=== PATIENT | female | born 1965 | race Hispanic/Latino ===

== ENCOUNTER 2017-11-19 12:48 | Day surgery (SDC) | payer OTHER ==
[~2017-11-19] VITALS: Ht 165.1 cm; Wt 95.3 kg
[~2017-11-19 12:48] MED LIST: CYANOCOBAL1000 MCG/M IM; LORATADINE10 M3 PO; VITAMI IM
[2017-11-19 17:44] VITALS: BP 129/79
== END 2017-11-19 17:45 | disposition home or self-care (01) | DRG 392 ==
LOC: ENDO 12:48
PROVIDERS: ATTEND Internal Medicine Gastroenterology
PROC: 0DBN8ZX Excision of Sigmoid Colon, Via Natural or Artificial Opening Endoscopic, Diagnostic (ICD-10-PCS; principal; 2017-11-19)
PROC: 0DBP8ZX Excision of Rectum, Via Natural or Artificial Opening Endoscopic, Diagnostic (ICD-10-PCS; 2017-11-19)
DX: R14.0 Abdominal distension (gaseous) (principal); K59.00 Constipation, unspecified; D12.6 Benign neoplasm of colon, unspecified; K62.1 Rectal polyp; K64.4 Residual hemorrhoidal skin tags; K64.8 Other hemorrhoids; R11.2 Nausea with vomiting, unspecified; K21.9 Gastro-esophageal reflux disease without esophagitis; R10.13 Epigastric pain; Z79.899 Other long term (current) drug therapy

== ENCOUNTER → 2017-12-16 | Outpatient (REF) | payer OTHER ==
[2017-12-16 10:18] VITALS: BP 126/81
== END | disposition home or self-care (01) | DRG 951 ==
LOC: PO 09:40 → ORM 09:45
PROVIDERS: ATTEND Internal Medicine Gastroenterology
DX: Z01.818 Encounter for other preprocedural examination (principal); R10.13 Epigastric pain; R11.2 Nausea with vomiting, unspecified; K21.9 Gastro-esophageal reflux disease without esophagitis; Z98.890 Other specified postprocedural states

== ENCOUNTER 2017-12-17 09:37 | Day surgery (SDC) | payer OTHER ==
[2017-12-17 12:20] VITALS: BP 98/53
== END 2017-12-17 12:30 | disposition home or self-care (01) | DRG 392 ==
LOC: ENDO 09:37 → ORM 12:00 → ENDO 12:00 → ORM 12:15 → ENDO 12:30 → ORM 13:00
PROVIDERS: ATTEND Internal Medicine Gastroenterology
PROC: 0DB48ZX Excision of Esophagogastric Junction, Via Natural or Artificial Opening Endoscopic, Diagnostic (ICD-10-PCS; principal; 2017-12-17)
PROC: 0DB78ZX Excision of Stomach, Pylorus, Via Natural or Artificial Opening Endoscopic, Diagnostic (ICD-10-PCS; 2017-12-17)
PROC: 0DB58ZX Excision of Esophagus, Via Natural or Artificial Opening Endoscopic, Diagnostic (ICD-10-PCS; 2017-12-17)
DX: K29.50 Unspecified chronic gastritis without bleeding (principal); K21.0 Gastro-esophageal reflux disease with esophagitis; K22.8 Other specified diseases of esophagus; Q40.8 Other specified congenital malformations of upper alimentary tract